=== PATIENT | female | born 1990 | race Caucasian/White ===

== ENCOUNTER 2017-07-21 07:54 | Inpatient (IN) | payer OTHER ==
[2017-07-21] MEDS ORDERED: MAGNESIUM 4GM/H20 - 4 GM/100 ML IVPB IVPB ONE ×2 (08:15→08:30)
[2017-07-21] MEDS ORDERED: BETAMET ACET/BETAMET NA PH 30 MG/5 ML VIAL ONE (08:30)
[2017-07-21] MEDS ORDERED: AMPICILLIN SODIUM 2 GM VIAL ONE (08:30)
[2017-07-21] MEDS ORDERED: morphine SULFATE/Preservative Free 0.5 MG/ML (1cc Syringe) ONE (08:48)
[2017-07-21] MEDS ORDERED: ceFAZolin SODIUM 1 GM VIAL ONE (08:48)
[2017-07-21 09:02] LABS: BASO % 0.2 % (0-2.0); HEMATOCRIT 31.2 % (32.4-45.2); HEMOGLOBIN 10.3 GM/dL (10.7-15.3); LYMPH % 4.1 % (8-40); MCH 29.3 pg (25.7-33.7); MEAN CELL VOLUME 88.8 fl (80-96); MEAN PLT VOLUME 8.5 fl (7.5-11.1); MONO % 4.9 % (3.8-10.2); NEUT % 90.8 % (42.8-82.8); PLATELET COUNT 184 K/MM3 (134-434); RBC 3.52 M/mm3 (3.60-5.2); RDW 21.6 % (11.6-15.6); WHITE BLOOD COUNT 16.6 K/mm3 (4.0-10.0)
[2017-07-21] MEDS ORDERED: OXYTOCIN 10 UNITS/ML VIAL ONE (09:03)
[2017-07-21] MEDS ORDERED: MIDAZOLAM HCL 2 MG/2 ML SINGLE DOSE VIAL ONE (09:07)
[2017-07-21] MEDS ORDERED: MEPERIDINE HCL CARPU-JECT 50 MG/1 ML DISP.SYRIN ONE (09:09)
[2017-07-21] MEDS ORDERED: ONDANSETRON 4 MG/2 ML VIAL IVPUSH PRN ×2 (09:15→12:42)
[2017-07-21] MEDS ORDERED: morphine SULFATE/Preservative Free 0.5 MG/ML (1cc Syringe) EP ONE ×2 (09:15→12:42)
[2017-07-21] MEDS ORDERED: IBUPROFEN 800 MG/8 ML IJ IVPB ONE (09:16)
[2017-07-21] MEDS ORDERED: OXYTOCIN 20 UNITS in 0.9% NS 20 UNIT/1,000 ML INFUS.BAG IV ONE ×2 (09:18→11:58)
[2017-07-21 09:37] LABS: VENOUS PC02 37.9 mmHg (38-52); VENOUS PH 7.35 (7.32-7.42); VENOUS PO2 19.4 mmHg (28-48)
[2017-07-21] MEDS ORDERED: CITRIC ACID/SODIUM CITRATE 30 ML UNIT-DOSE CUP PO ONE (09:38)
[2017-07-21] MEDS ORDERED: METHYLERGONOVINE MALEATE 0.2 MG/1 ML AMP IM PRN (09:39)
[2017-07-21] MEDS ORDERED: IBUPROFEN 600 MG TABLET (FP) PO PRN (09:39)
[2017-07-21] MEDS ORDERED: IBUPROFEN 800 MG/8 ML IJ IVPB PRN (09:39)
--- NOTE | 2017-07-21 09:43 | OP ---
Operative Note - Note: Operative Date: 07/21/17 Pre-Operative Diagnosis: Labor / Placenta Previa Operation: Primary Low Transverse Findings: Baby in vertex position with placenta previa Bicornuate uterus Post-Operative Diagnosis: Same as Pre-op Surgeon: Kenia Epperson Assistant Paralegal: Taz Mann Anesthesia: Spinal Specimens Removed: Placenta Estimated Blood Loss (mls): 400
[2017-07-21] MEDS ORDERED: ELECTROLYTE-148 SOLN 1,000 ML IV SCH (09:45)
[2017-07-21] MEDS ORDERED: OXYTOCIN 20 UNITS in 0.9% NS 20 UNIT/1,000 ML INFUS.BAG IV SCH (09:45)
--- NOTE | 2017-07-21 09:48 | HP ---
Past Medical History - Admission Chief Complaint: Labor pain History of Present Illness: 27 yo @ 29 weeks gestation, EDC 09/30/17, with documented placenta previa presents to L&D c/o strong contractions pain. Upon evaluated patient was 8 cm dilated. [facility] contacted for consult; but we were told that transferring patient to their center was not safe. Decision made for stat . History Source: Patient Limitations to Obtaining History: No Limitations - Past Medical History ...: 2 ...Para: 1 - Past Surgical History Past Surgical History: Yes: None Hx Myomectomy: No Hx Transabdominal Cerclage: No - Smoking History Have you smoked in the past 12 months: No - Alcohol/Substance Use Hx Alcohol Use: No History of Substance Use: reports: None - Social History Usual Living Arrangement: Yes: With Spouse History of Recent Travel: No Home Medications - Allergies Allergies/Adverse Reactions: Allergies Allergy/AdvReac Type Severity Reaction Status Date / Time No Known Allergies Allergy Verified 07/21/17 09:43 Review of Systems - Review of Systems Constitutional: reports: No Symptoms Eyes: reports: No Symptoms HENT: reports: No Symptoms Neck: reports: No Symptoms Cardiovascular: reports: No Symptoms Respiratory: reports: No Symptoms Gastrointestinal: reports: No Symptoms Genitourinary: reports: Pain Breasts: reports: No Symptoms Reported Musculoskeletal: reports: No Symptoms Integumentary: reports: No Symptoms Neurological: reports: No Symptoms Endocrine: reports: No Symptoms Hematology/Lymphatic: reports: No Symptoms Psychiatric: reports: No Symptoms Pain Intensity: 10 Physical Exam - Maternity Constitutional: Yes: Well Nourished Eyes: Yes: WNL HENT: Yes: WNL Neck: Yes: Supple Cardiovascular: Yes: Regular Rate and Rhythm Lungs: Clear to auscultation Breast(s): Yes: WNL - Abdominal Exam/OB Number of Fetuses: Single Presentation: Vertex Contractions: Yes Intensity: Strong - Vaginal Exam/OB Dilatation (cm): 8 Effacement (%): 100 Amniotic Membrane Status: Intact Station: -2 - Physical Exam ...Motor Strength: WNL Psychiatric: Yes: Alert, Oriented - Labs Lab Results: CBC, BMP 07/21/17 08:25 Problem List - Problems (1) Active labor Code(s): O60.10X0 - LABOR W DELIVERY, UNSP TRIMESTER, UNSP (2) Placenta previa antepartum in third trimester Code(s): O44.03 - COMPLETE PLACENTA PREVIA NOS OR WITHOUT HEMOR, THIRD TRI Assessment/Plan IUP @ 29 weeks labor Placenta Previa Admit to L&D Stat
[2017-07-21 10:09] LABS: INR 0.99 (0.82-1.09); PROTHROMBIN TIME (PATIENT) 11.2 SEC (9.98-11.88)
[2017-07-21 10:11] LABS: ACTIVATED PTT 27.2 SECONDS (26.9-34.4)
[2017-07-21 11:13] LABS: ANION GAP 10 (8-16); BLOOD UREA NITROGEN 6 mg/dL (7-18); CALCIUM 8.1 mg/dL (8.5-10.1); CHLORIDE 103 mmol/L (98-107); CO2 24 mmol/L (21-32); CREATININE 0.6 mg/dL (0.55-1.02); GLUCOSE,RANDOM 167 mg/dL (74-106); POTASSIUM 3.6 mmol/L (3.5-5.1); SODIUM 137 mmol/L (136-145)
[2017-07-21 11:34] VITALS: BMI 24.3
[2017-07-21] MEDS: PRENATAL VITAMINS W/ FOLIC ACID TABLET (FP) PO SCH (11:56)
[2017-07-21] MEDS: FERROUS SO4 325 MG TABLET (FP) PO SCH ×2 (11:56→23:44)
[2017-07-21] MEDS ORDERED: BETAMET ACET/BETAMET NA PH 30 MG/5 ML VIAL IM STA (12:04)
[2017-07-21] MEDS ORDERED: AMPICILLIN - 2 GM/100 ML BAG IVPB ONE (12:15)
[2017-07-22 08:55] LABS: BASO % 0.1 % (0-2.0); HEMATOCRIT 28.3 % (32.4-45.2); HEMOGLOBIN 9.3 GM/dL (10.7-15.3); MCH 29.4 pg (25.7-33.7); MEAN CELL VOLUME 89.3 fl (80-96); MONO % 7.6 % (3.8-10.2); NEUT % 87.3 % (42.8-82.8); PLATELET COUNT 172 K/MM3 (134-434); RBC 3.17 M/mm3 (3.60-5.2); RDW 21.4 % (11.6-15.6); WHITE BLOOD COUNT 18.9 K/mm3 (4.0-10.0)
[2017-07-22 09:00] LABS: ADD RBC MORPHOLOGY YES
--- NOTE | 2017-07-22 09:10 | PN ---
Post Progress Note - Subjective Subjective: 27 yo Para 2 status post primary , seen and evaluated. She c/o incision pain. Post Day: 1 Type of Delivery: Primary C/S Vital Signs: Vital Signs Temperature 98.8 F 07/22/17 08:24 Pulse Rate 84 07/22/17 08:24 Respiratory Rate 20 07/22/17 08:24 Blood Pressure 117/62 07/22/17 08:24 O2 Sat by Pulse Oximetry (%) 100 07/21/17 12:05 Breast Exam: Yes: Soft Uterus: Yes: Fundus Firm Incision: Yes: Dressing dry and intact Abdomen/GI: Yes: Abdomen soft Lochia: Yes: Rubra Lochia, amount: Small Extremities: Yes: Calves non-tender Perineum: Yes: Intact Activity: Other (She's lying in bed) - Labs Labs: CBC WBC 18.9 K/mm3 (4.0-10.0) H 07/22/17 07:30 RBC 3.17 M/mm3 (3.60-5.2) L 07/22/17 07:30 Hgb 9.3 GM/dL (10.7-15.3) L 07/22/17 07:30 Hct 28.3 % (32.4-45.2) L 07/22/17 07:30 MCV 89.3 fl (80-96) 07/22/17 07:30 MCH 29.4 pg (25.7-33.7) 07/22/17 07:30 MCHC 33.0 g/dl (32.0-36.0) 07/22/17 07:30 RDW 21.4 % (11.6-15.6) H 07/22/17 07:30 Plt Count 172 K/MM3 (134-434) 07/22/17 07:30 MPV 9.0 fl (7.5-11.1) 07/22/17 07:30 Neutrophils % 87.3 % (42.8-82.8) H 07/22/17 07:30 Lymphocytes % 5.0 % (8-40) L D 07/22/17 07:30 Monocytes % 7.6 % (3.8-10.2) 07/22/17 07:30 Eosinophils % 0.0 % (0-4.5) 07/22/17 07:30 Basophils % 0.1 % (0-2.0) 07/22/17 07:30 Problem List - Problems (1) Active labor Code(s): O60.10X0 - LABOR W DELIVERY, UNSP TRIMESTER, UNSP (2) Placenta previa antepartum in third trimester Code(s): O44.03 - COMPLETE PLACENTA PREVIA NOS OR WITHOUT HEMOR, THIRD TRI (3) Status post primary low transverse section Code(s): Z98.891 - HISTORY OF UTERINE SCAR FROM PREVIOUS SURGERY Assessment/Plan Status post primary Ambulation Analgesia as needed Continue routine Post op care
[2017-07-22] MEDS: FERROUS SO4 325 MG TABLET (FP) PO SCH ×2 (09:26→21:07)
[2017-07-22] MEDS: PRENATAL VITAMINS W/ FOLIC ACID TABLET (FP) PO SCH (09:27)
[2017-07-22] MEDS ORDERED: BISACODYL 10 MG SUPP.RECT RC PRN (09:39)
[2017-07-22] MEDS: oxyCODONE HCL 5 MG TABLET PO PRN ×2 (10:45→19:32)
[2017-07-22] MEDS: SIMETHICONE 80 MG TAB.CHEW (FP) PO PRN ×2 (10:48→19:31)
[2017-07-22 11:18] LABS: ANISOCYTOSIS 2+
[2017-07-22] MEDS ORDERED: IBUPROFEN *ORAL SUSPENSION* 100 MG/5 ML PO PRN (13:18)
--- NOTE | 2017-07-22 13:34 | PN ---
Progress Note, Physician Chief Complaint: Pt. ambulating and voiding, no anesthesia complaints. - Current Medication List Current Medications: Active Medications Acetaminophen (Tylenol Oral Solution -) 650 mg PO Q4H PRN PRN Reason: PAIN 1-4 Bisacodyl (Dulcolax Suppository -) 10 mg RC PRN PRN PRN Reason: CONSTIPATION Diphenhydramine HCl (Benadryl Injection -) 25 mg IVPUSH Q4H PRN PRN Reason: Pruritis Last Admin: 07/21/17 12:43 Dose: 25 mg Ferrous Sulfate (Feosol -) 325 mg PO BID [facility] Last Admin: 07/22/17 09:26 Dose: Not Given Parenteral Electrolytes (Plasma-Lyte 148 -) 1,000 mls @ 125 mls/hr IV ASDFORMERLY [facility] Last Admin: 07/21/17 08:10 Dose: 125 mls/hr Oxytocin/Sodium Chloride (Normal Saline+20 Units Oxytocin -) 20 unit in 1,000 mls @ 125 mls/hr IV [facility] Last Admin: 07/21/17 11:56 Dose: 125 mls/hr Ibuprofen (Caldolor Injection -) 800 mg IVPB Q8H PRN PRN Reason: PAIN Ibuprofen (Motrin Oral Suspension -) 600 mg PO Q4H PRN PRN Reason: PAIN LEVEL 1-4 Methylergonovine Maleate (Methergine Injection -) 0.2 mg IM Q4H PRN PRN Reason: Excessive Bleeding (L&D) Ondansetron HCl (Zofran Injection) 4 mg IVPUSH Q4H PRN PRN Reason: NAUSEA Oxycodone HCl (Roxicodone -) 5 mg PO Q4H PRN PRN Reason: PAIN LEVEL 4 - 6 Last Admin: 07/22/17 10:45 Dose: 5 mg Multivit/Folic Acid/Iron ( Vitamins (Sjr) -) 1 tab PO DAILY [facility] Last Admin: 07/22/17 09:27 Dose: Not Given Simethicone (Mylicon -) 80 mg PO Q4H PRN PRN Reason: GAS Last Admin: 07/22/17 10:48 Dose: 80 mg - Objective Vital Signs: Vital Signs Temperature 98.8 F 07/22/17 08:24 Pulse Rate 84 07/22/17 08:24 Respiratory Rate 20 07/22/17 08:24 Blood Pressure 117/62 07/22/17 08:24 O2 Sat by Pulse Oximetry (%) 100 07/21/17 12:05 Constitutional: Yes: Well Nourished, No Distress, Calm Musculoskeletal: Yes: WNL Neurological: Yes: WNL, Alert, Oriented ...Motor Strength: WNL Labs: CBC, BMP 07/22/17 07:30 07/21/17 08:25 INR, PTT INR 0.99 (0.82-1.09) 07/21/17 08:25 Assessment/Plan POD#1 s/p under spinal with duramorph. Doing well. D/C from anesthesia care.
[2017-07-22] MEDS: ACETAMINOPHEN 650 MG/20.3 ML ORAL SOLUTION (CUPS) PO PRN (19:32)
[2017-07-23] MEDS: oxyCODONE HCL 5 MG TABLET PO PRN ×3 (06:04→18:33)
[2017-07-23] MEDS: ACETAMINOPHEN 650 MG/20.3 ML ORAL SOLUTION (CUPS) PO PRN ×3 (06:05→18:34)
[2017-07-23] MEDS: SIMETHICONE 80 MG TAB.CHEW (FP) PO PRN ×3 (06:07→18:34)
[2017-07-23] MEDS: FERROUS SO4 325 MG TABLET (FP) PO SCH ×2 (10:32→22:20)
[2017-07-23] MEDS: PRENATAL VITAMINS W/ FOLIC ACID TABLET (FP) PO SCH (10:32)
--- NOTE | 2017-07-23 11:50 | PN ---
Post Progress Note - Subjective Subjective: 27 yo Para 2 status post primary , seen and evaluated. She c/o incision pain. Post Day: 2 Type of Delivery: Primary C/S Vital Signs: Vital Signs Temperature 98.6 F 07/23/17 10:00 Pulse Rate 71 07/23/17 10:00 Respiratory Rate 20 07/23/17 10:00 Blood Pressure 108/70 07/23/17 10:00 O2 Sat by Pulse Oximetry (%) 100 07/21/17 12:05 Breast Exam: Yes: Soft Uterus: Yes: Fundus Firm Incision: Yes: Dressing dry and intact, Other (Steri strips in place) Abdomen/GI: Yes: Abdomen soft, Tolerating PO Lochia: Yes: Rubra Lochia, amount: Small Perineum: Yes: Intact Activity: Ambulating - Labs Labs: CBC WBC 18.9 K/mm3 (4.0-10.0) H 07/22/17 07:30 RBC 3.17 M/mm3 (3.60-5.2) L 07/22/17 07:30 Hgb 9.3 GM/dL (10.7-15.3) L 07/22/17 07:30 Hct 28.3 % (32.4-45.2) L 07/22/17 07:30 MCV 89.3 fl (80-96) 07/22/17 07:30 MCH 29.4 pg (25.7-33.7) 07/22/17 07:30 MCHC 33.0 g/dl (32.0-36.0) 07/22/17 07:30 RDW 21.4 % (11.6-15.6) H 07/22/17 07:30 Plt Count 172 K/MM3 (134-434) 07/22/17 07:30 MPV 9.0 fl (7.5-11.1) 07/22/17 07:30 Neutrophils % 87.3 % (42.8-82.8) H 07/22/17 07:30 Lymphocytes % 5.0 % (8-40) L D 07/22/17 07:30 Monocytes % 7.6 % (3.8-10.2) 07/22/17 07:30 Eosinophils % 0.0 % (0-4.5) 07/22/17 07:30 Basophils % 0.1 % (0-2.0) 07/22/17 07:30 Anisocytosis 2+ 07/22/17 07:30 Microcytosis 1+ 07/22/17 07:30 Assessment/Plan Status post primary Ambulation Analgesia as needed Continue routine Post op care
[2017-07-23] MEDS: IBUPROFEN 100 MG/5 ML UNIT DOSE CUPS PO PRN (21:17)
[2017-07-24] MEDS: ACETAMINOPHEN 650 MG/20.3 ML ORAL SOLUTION (CUPS) PO PRN ×4 (02:46→22:35)
[2017-07-24] MEDS: oxyCODONE HCL 5 MG TABLET PO PRN ×4 (02:47→22:35)
[2017-07-24] MEDS: SIMETHICONE 80 MG TAB.CHEW (FP) PO PRN ×4 (09:06→22:35)
[2017-07-24] MEDS: PRENATAL VITAMINS W/ FOLIC ACID TABLET (FP) PO SCH (09:45)
[2017-07-24] MEDS: FERROUS SO4 325 MG TABLET (FP) PO SCH ×2 (09:45→22:00)
[2017-07-24 13:16] LABS: BASO % 0.2 % (0-2.0); EOS % 0.4 % (0-4.5); HEMATOCRIT 25.5 % (32.4-45.2); HEMOGLOBIN 8.5 GM/dL (10.7-15.3); LYMPH % 16.2 % (8-40); MCH 29.8 pg (25.7-33.7); MCHC 33.2 g/dl (32.0-36.0); MEAN CELL VOLUME 89.9 fl (80-96); MEAN PLT VOLUME 8.4 fl (7.5-11.1); MONO % 6.1 % (3.8-10.2); NEUT % 77.1 % (42.8-82.8); PLATELET COUNT 179 K/MM3 (134-434); RBC 2.84 M/mm3 (3.60-5.2); RDW 20.9 % (11.6-15.6); WHITE BLOOD COUNT 8.2 K/mm3 (4.0-10.0)
[2017-07-24] MEDS: IBUPROFEN 100 MG/5 ML UNIT DOSE CUPS PO PRN (18:32)
[2017-07-25] MEDS: oxyCODONE HCL 5 MG TABLET PO PRN ×2 (07:22→07:24)
[2017-07-25] MEDS: SIMETHICONE 80 MG TAB.CHEW (FP) PO PRN (07:23)
[2017-07-25 08:43] VITALS: BP 122/81; PULSE 53; TEMP 97.9
[2017-07-25] MEDS: PRENATAL VITAMINS W/ FOLIC ACID TABLET (FP) PO SCH (10:05)
[2017-07-25] MEDS: FERROUS SO4 325 MG TABLET (FP) PO SCH (10:05)
--- NOTE | 2017-07-25 11:02 | DS ---
Physical Exam-MANAGER SIX SIGMA Vital Signs: Vital Signs Temperature 97.9 F 07/25/17 08:42 Pulse Rate 53 L 07/25/17 08:42 Respiratory Rate 20 07/25/17 08:42 Blood Pressure 122/81 07/25/17 08:42 O2 Sat by Pulse Oximetry (%) 100 07/21/17 12:05 Constitutional: Yes: Well Nourished, No Distress Respiratory: Yes: WNL Gastrointestinal: Yes: WNL, Normal Bowel Sounds, Soft ....Post : Yes: Uterus firm, Uterus non-tender Breast(s): Yes: WNL Musculoskeletal: Yes: WNL Extremities: Yes: WNL Edema: No Wound/Incision: Yes: Clean/Dry, Well Approximated Labs: CBC, BMP 07/24/17 13:10 07/21/17 08:25 Delivery - Delivery Type of Anesthesia: Spinal Episiotomy/Laceration: None EBL (cc): 400 Delivery, Single - Stages of Labor Date 1st Stage Initiatied: 07/21/17 Time 1st Stage Initiated: 00:00 Date of Delivery: 07/21/17 Time of Delivery: 09:06 Time Placenta Delivered: 09:07 - Condition of 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: Yes Name: Bo Anderson Infant Gender: Male Weight: 2 lb 13 oz Position: Right, OT Total Hours ROM (Hrs/Mins): 0HRS 2MIN - 1 Minute Total Score: 8 5 Minutes Total Score: 9 - [place] Feeding Plan Initial Plan: Elected not to breastfeed exclusively throughout hospitalization Discharge Summary Reason For Visit: LABOR ADMIT ANemia placenta previa Procedures: Principal: Section Hospital Course: unremarkable Condition: Good - Instructions Diet, Activity, Other Instructions: Physical activity Resume your normal everyday activity as tolerated no heavy lifting or exercise until seen by your surgeon. You may walk unlimited yung of and climb stairs. You may resume driving the car when you feel safe and comfortable behind the wheel. No sexual activity as instructed. Wound care If you have a bandage, leave it on, and keep dry for 48-72 hours. After that time discard the outer bandage. If they are tapes on the skin under the out of bandage leave them in place. They will peel off in the next 7 to 10 days. Do Not Peel them off. You may shower the day after surgery. If there are tapes present on the skin, you may shower over them. Diet There are no dietary restrictions. Eat healthy, high-fiber foods. Drink 6 to 8 glasses of liquid each day. This will assist in keeping your bowels are regular. Pain management You may take Tylenol or acetaminophen or Ibuprofen (for example, Motrin, Advil etc.) from my pain prescription medication is ordered should be taken as prescribed for moderate to severe pain. Call MD for any of the following: Severe pain not relieved by medication Fever of 101 or higher Excessive bleeding or drainage on dressing Inability to urinate Referrals: Kenia Epperson MD [Staff Physician] - Disposition: HOME - Home Medications Comprehensive Discharge Medication List: Ambulatory Orders Ferrous Sulfate 325 mg PO BID 05/02/17 Vit/Iron Fum/Folic AC [ Tablet] 1 each PO DAILY 05/02/17 Ferrous Sulfate 325 mg PO DAILY 07/21/17 Tablet 1 tab PO DAILY 07/21/17 Ibuprofen [Motrin -] 600 mg PO QID #28 tablet 07/25/17 Simethicone [Mylicon -] 80 mg PO QID #30 tab.chew 07/25/17
--- NOTE | 2017-07-27 16:24 | PATH ---
Surgical Pathology Report Patient Name: DORY DEXTER [facility]. Rec. 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 Specimen(s) Received PLACENTA Clinical History , placenta previa Final Diagnosis PLACENTA, SECTION: 269 g THIRD TRIMESTER DISRUPTED PLACENTA WITH TRIVASCULAR UMBILICAL CORD AND PLACENTAL MEMBRANES WITH FOCAL SUBCHORIONIC HEMORRHAGE. Electronically Signed Smita Vivar M.D. Gross Description The specimen is received fresh labeled placenta and is a 269 gram, 13.0 x 11.0 x 2.6 cm. placenta with attached membranes and umbilical cord. The attached membranes are obrien brown, thick, cloudy and insert marginally. The umbilical cord measures 3.5 cm. in length and averages 0.9 cm. in diameter. The cord is red-brown with a dusky appearance. The cord inserts at the margin. No true knots or strictures are identified. Cut surface of the umbilical cord reveals 3 vessels. The surface is edge-brown with minimal fibrin deposition and appropriate caliber vessels. The maternal surface is red-brown and markedly disrupted. Sectioning reveals red-brown, spongy parenchyma. No lesions are identified. Divorce Lawyer sections are submitted in three cassettes as follows: 1- membrane rolls and umbilical cord; 2-3- full thickness sections of placenta. 07/25/2017 [facility]07/25/2017
== END 2017-07-25 13:45 | disposition home or self-care (01) | DRG 540 ==
LOC: MERGE 07:54 → JER 07:54 → JERBED 08:30 → J3W 13:31
PROVIDERS: ADMIT Obstetrics & Gynecology; ATTEND Obstetrics & Gynecology
PROC: 10D00Z1 Extraction of Products of Conception, Low, Open Approach (ICD-10-PCS; principal; 2017-07-21)
DX: O44.03 Complete placenta previa NOS or without hemorrhage, third trimester (principal); O60.14X0 Preterm labor third trimester with preterm delivery third trimester, not applicable or unspecified; O34.03 Maternal care for unspecified congenital malformation of uterus, third trimester; Q51.3 Bicornate uterus; O99.013 Anemia complicating pregnancy, third trimester; D64.9 Anemia, unspecified; Z3A.29 29 weeks gestation of pregnancy; Z37.0 Single live birth
CPT/HCPCS: 36415; 80048; 82803; 85025; 85610; 85730; 86593; 86850; 86900; 86901; 87350; 87389; 88307-TC; 96372; 99281-25; 99283-25

== ENCOUNTER 2022-07-30 07:28 | Emergency (ER) | payer OTHER ==
[2022-07-30 07:35] VITALS: BP 117/80; PULSE 90; RESP 16; TEMP 98; BMI 25.6
[2022-07-30] MEDS ORDERED: ACETAMINOPHEN 325 MG TABLET (FP) PO ONE (08:07)
[2022-07-30] MEDS ORDERED: LIDOCAINE 5% TOPICAL PATCH TP ONE (08:08)
[2022-07-30] MEDS ORDERED: KETOROLAC TROMETHAMINE 15 MG/ML VIAL IM ONE (08:08)
[2022-07-30] MEDS ORDERED: KETOROLAC TROMETHAMINE 15 MG/ML VIAL ONE (08:23)
[2022-07-30] MEDS ORDERED: LIDOCAINE 5% TOPICAL PATCH ONE (08:23)
[2022-07-30] MEDS ORDERED: ACETAMINOPHEN 325 MG TABLET (FP) ONE (08:23)
[2022-07-30] MEDS ORDERED: METHOCARBAMOL 500 MG TABLET PO ONE ×2 (09:00→09:05)
[2022-07-30] MEDS ORDERED: METHOCARBAMOL 500 MG TABLET ONE (09:34)
[2022-07-30] MEDS ORDERED: LIDOCAINE PATCH REMOVAL MC SCH (22:00)
== END 2022-07-30 10:20 | disposition home or self-care (01) ==
LOC: JER 07:28
PROC: 3E023GC Introduction of Other Therapeutic Substance into Muscle, Percutaneous Approach (ICD-10-PCS; principal; 2022-07-30)
DX: S13.4XXA Sprain of ligaments of cervical spine, initial encounter (principal); M54.50 Low back pain, unspecified; V49.50XA Passenger injured in collision with unspecified motor vehicles in traffic accident, initial encounter
CPT/HCPCS: 72100-TC-FY; 99284-25